=== PATIENT | male | born 1960 | race Caucasian/White ===

== ENCOUNTER 2019-03-16 05:01 | Day surgery (SDC) | payer OTHER ==
[2019-03-16] VITALS (12 sets, daily range): BP systolic 111–160; BP diastolic 76–93; PULSE 65–87; TEMP 97.3–98.5
[~2019-03-16] VITALS: Ht 175.4 cm; Wt 107.0 kg
--- NOTE | 2019-03-16 05:45 | NUR ---
PATIENT ARRIVES PER AMBULATORY STATUS FOR ADMIT FOR RTK. IS ALERT AND ORIENTED X4. ADMISSION QUESTIONS COMPLETED AND PREOP MEDS GIVEN. INSERTED #20 INSYTE TO RIGHT HAND WITHOUT PROBLEM, LR CONNECTED AND INFUSING AT KVO. RIGHT KNEE SCRUBED BY NANCY CERRATO. CONSENT COMPLETED. QUESTIONS ANSWERED.
--- NOTE | 2019-03-16 06:40 | NUR ---
patient in surgery, shift report received from SAQIB Oviedo
--- NOTE | 2019-03-16 10:20 | NUR ---
returned to room per bed from PACU, awake and alert, IV infusing and placed on pump at 100ml/hr, bulky dressing to right knee CD&I, has bandaid to left knee from injection in surgery, COMPA hose placed on left leg and SCDS on bilaterally, O2 on at 2L/NC and O2 sat 99%, has minimal sensation to feet and is moving lower extremities and is beginning to wiggle toes and do ankle pumps, explained to patient he does not have a catheter and if feels urge to void to notify staff, verbalizes understanding, full assessment completed, see interventions for further info, family at bedside
--- NOTE | 2019-03-16 10:30 | NUR ---
taking sips of water and tolerates well, given scheduled tylenol
--- NOTE | 2019-03-16 11:00 | NUR ---
is moving toes and ankles now and sensation is better, denies urge to void, watching TV
--- NOTE | 2019-03-16 11:15 | NUR ---
taking water and tolerates well, given pudding per his rerquest
--- NOTE | 2019-03-16 11:30 | NUR ---
sitting up in bed having regular food and tolerates well,
--- NOTE | 2019-03-16 11:37 | NUR ---
Design Technology Professor met with patient to complete initial intake. Patient lives in [place] with his , Khalida (ph#[phone]). Patient sees Dr. Gamino for primary care and obtains medications from [facility] with no difficulties. Patient has crutches and a walker to use as needed at home. Patient does not have Advance Directives and was not interested in setting them up at this time. Patient states he plans to return home upon discharge. No additional concerns at this time.
--- NOTE | 2019-03-16 12:20 | NUR ---
assisted him with standing at side of bed, moves well and stood without difficulty, denies urge to void but attempted and was unable, back to bed and bladder scan reveals approx 780ml urine in bladder, IVAN Gibson notified, straight cath completed and 800ml clear yellow urine returned, tolerated procedure well, c/o increasing pain to right knee and medicated with roxicodone 5mg,
--- NOTE | 2019-03-16 13:00 | NUR ---
continues to c/o pain to right knee and medicated with second roxicodone 5mg, is asking to get up, physical therapy notified and will be in to assess patient
--- NOTE | 2019-03-16 13:50 | NUR ---
up in recliner, continues to c/o pain after roxicodone, medicated with morphine 2mg slow IV
--- NOTE | 2019-03-16 14:33 | NUR ---
states is beginning to get some relief from the pain,
--- NOTE | 2019-03-16 15:30 | NUR ---
stood at side of chair and moved about for comfort, states the pain did get better but is beginning to return, will medicate again when time appropriate, is beginning to feel urge to void, will call staff when ready to get up to bathroom
--- NOTE | 2019-03-16 16:10 | NUR ---
states pain is beginning to increase again, medicated with roxicodone 10mg po and scheduled tylenol
--- NOTE | 2019-03-16 16:40 | NUR ---
assisted up to bathroom and voided 400ml clear yellow urine without difficulty, then back to recliner
--- NOTE | 2019-03-16 17:24 | NUR ---
sitting up in chair eating supper, states pain pills have helped relieve the pain in right knee/thigh
--- NOTE | 2019-03-16 18:40 | NUR ---
had supper and tolerated well, visiting with a large group of family, bedside shift report given to SAQIB Oviedo
--- NOTE | 2019-03-16 19:52 | NUR ---
PATIENT WAS MEDICATED WITH TRAMADOL 50MG AT 1918, REPORTS PAIN NOW 7/10 AND ASKING FOR MORPHINE. GIVEN 2MG IV AT THIS TIME.
--- NOTE | 2019-03-16 20:45 | NUR ---
Oxycodone 10mg po for pain to right knee. Has IVF infusing to right hand without redness or swelling. Is alert and oriented x4. Spouse at bedside.
--- NOTE | 2019-03-16 22:03 | NUR ---
Medicated with Morphine 2mg IV for continued pain to right knee, worse with movement.
--- NOTE | 2019-03-17 00:48 | NUR ---
Patient reports pain to right knee 5. Medicated with Tramadol 100mg po and Oxycodone 10mg po at this time. Repositioned knee on pillow. Ice pack in place.
--- NOTE | 2019-03-17 04:00 | NUR ---
Patient reports pain to right knee 5/10, medicated with scheduled Tylenol and Morphine 2mg IVP.
[2019-03-17 04:02] VITALS: BP 149/85; PULSE 86; TEMP 98
--- NOTE | 2019-03-17 06:14 | NUR ---
Medicated with Oxycodone 10mg po and Gabapentin 300mg po at this time.
[2019-03-17 07:22] LABS: HEMATOCRIT 42.1 % (42.0-52.0); HEMOGLOBIN 13.9 g/dl (13.5-18.0)
--- NOTE | 2019-03-17 07:32 | NUR ---
Report from Ivelisse CERRATO.
[2019-03-17 08:13] VITALS: BP 146/88; PULSE 88; TEMP 98.4
--- NOTE | 2019-03-17 10:00 | NUR ---
PT OUT TO [facility] FOR THERAPY AND THEN RETURNED TO ROOM. DRESSING CHANGE COMPLETE. AQUACEL OVER INCISION. PT TOLERATED WELL. GAIT STEADY, PAIN CONTROLLED WITH PO MEDS.
--- NOTE | 2019-03-17 10:27 | NUR ---
Initial visit; Patient and thanked [employer] for offering God's blessings and keeping him in [employer]'s prayers.
[2019-03-17 11:33] VITALS: BP 158/81; PULSE 97; TEMP 98.1
[2019-03-17 17:34] VITALS: BP 152/84; PULSE 93; TEMP 97.7
[2019-03-17 20:00] VITALS: BP 163/82; PULSE 92; TEMP 98.4
--- NOTE | 2019-03-17 20:29 | NUR ---
pt doing very well, up and ambulating halls. c/o mininal pain to right knee, has ice pack on. alert and oriented with vss. prn pain medicine given per request to stay on top of pain. denies other needs at this time. call light wtihin reach, will continue to monitor
[2019-03-18] VITALS: BP 135/75; PULSE 108; TEMP 98.6
--- NOTE | 2019-03-18 00:33 | NUR ---
Pt c/o pain to right knee (7). prn 5mg oxycodone given
[2019-03-18 04:00] VITALS: BP 150/94; PULSE 99; TEMP 98.9
[2019-03-18 07:09] VITALS: BP 137/81; PULSE 108; TEMP 98.6
--- NOTE | 2019-03-18 08:00 | NUR ---
PATIENT IS A&O. VSS. RATES PAIN IN RLE AT 4/5 DEPENDING ON ACTIVITY. GAVE PRN NORCO, TWO TABS WITH AM MEDS. RTK DRESSING IS CD&I WITH AQUACEL. TEDS TO BLE. NOTED +2 SWELLING IN OPERATIVE KNEE. POSITIVE PEDAL PULSES. PATIENT EAT/DRINK/VOIDING SUFFICENT AMOUNTS. DC'D IV FOR PENDING DISCHARGE. HEAD TO TOE WNL. AT BEDSIDE. WENT OVER SOME DISCHARGE INSTRUCTIONS/EXPECTATIONS. PATIENT AND VERBALIZE UNDERSTANDING. PATIENT DOING WELL. NO OTHER NEEDS.
[2019-03-18] MEDS ORDERED: ASPI325T6 PO (10:58)
[2019-03-18] MEDS ORDERED: NORCO 325 MG-7.1 TAB PO (10:59)
[2019-03-18] MEDS ORDERED: ROXICODONE 55 MG/TAB PO (11:00)
[2019-03-18] MEDS ORDERED: TYLENOL 500MG500 MG PO (11:00)
[2019-03-18] MEDS ORDERED: COLACE 100100 MG/CAP PO (11:00)
[2019-03-18 11:12] VITALS: BP 142/80; PULSE 93; TEMP 98.9
--- NOTE | 2019-03-18 11:49 | NUR ---
First visit from the florist helper. Measurement Technician prayed with family. No other needs right now.
--- NOTE | 2019-03-18 13:45 | NUR ---
PATIENT DISCHARGING HOME VIA WC TO PERSONAL VEHICLE WITH . GAVE DISCHARGE INSTRUCTIONS, PRESCRIPTIONS & FOLLOW UP APT. ANSWERED ALL QUESTIONS/CONCERNS. DC'D IV. PATIENT GIVEN ROXICODONE, TWO TABS BEFORE DISCHARGE.
== END 2019-03-18 13:45 | disposition home or self-care (01) ==
LOC: JCC 05:01 → JCCO 05:01 → JCC 07:30 → EDSTATUS 07:30 → JCCO 07:30 → JCC 09:40 → JCCO 09:40 → JCC 03-17 06:03 → JCCO 03-18 13:45
PROVIDERS: Orthopaedic Surgery
DX: M17.0 Bilateral primary osteoarthritis of knee (principal); F17.220 Nicotine dependence, chewing tobacco, uncomplicated
CPT/HCPCS: A9284; C1776; J0690; J1200; J2250; J2270; J2704; J3301; J7030; J7120